=== PATIENT | male | born 1975 | race Asian ===

== ENCOUNTER 2018-10-19 11:53 | Emergency (ER) | payer OTHER ==
[~2018-10-19] VITALS: Ht 175.3 cm; Wt 69.4 kg
[2018-10-19] MEDS ORDERED: ONDANSETRON HCL INJ 2MG/ML 2ML 2 MG/ML VIAL IV STA (12:06)
[2018-10-19] MEDS ORDERED: IOPAMIDOL 370 MG/ML 200 ML INFUS..BTL INJ ONE (12:14)
[2018-10-19] MEDS ORDERED: DIATRIZOATE MEGL/DIATRIZOA SOD 30 ML BTL PO ONE (12:14)
[2018-10-19] MEDS ORDERED: SODIUM CHLORIDE 0.9% 50ML 50 ML ONE (12:15)
[2018-10-19] MEDS ORDERED: SODIUM CHLORIDE 0.9% 1000ML 1,000 ML IV SCH (12:15)
[2018-10-19] MEDS ORDERED: MORPHINE SULFATE INJ 4 MG/ML INJ 1ML IV PRN (12:15)
[2018-10-19] MEDS ORDERED: SODIUM CHLORIDE 0.9% 1000ML 1,000 ML ONE (12:30)
--- NOTE | 2018-10-19 14:13 | Diagnostic Imaging Report ---
EXAM: CT Abdomen and Pelvis WITH intravenous contrast INDICATION: Abdominal pain COMPARISON: None. TECHNIQUE: Abdomen and pelvis were scanned utilizing a multidetector helical scanner from the lung base to the pubic symphysis after administration of IV contrast. Coronal and sagittal reformations were obtained. Routine protocol was performed. Scan was performed when during portal venous phase. IV CONTRAST: 100mL of Isovue 370 ORAL CONTRAST: Gastrografin COMPLICATIONS: None RADIATION DOSE: Total DLP: 495.8 mGy*cm Dose modulation, iterative reconstruction, and/or weight based adjustment of the mA/kV was utilized to reduce the radiation dose to as low as reasonably achievable. FINDINGS: LOWER THORAX: 5 mm right middle lobe pulmonary nodule. No lung base consolidation. HEPATOBILIARY: Hepatic steatosis. Subcentimeter segment 6 hypodensity is too small to adequately characterize. No other focal liver lesions. Normal gallbladder. SPLEEN: No splenomegaly. PANCREAS: No focal masses or ductal dilatation. ADRENALS: No adrenal nodules. KIDNEYS/URETERS: No hydronephrosis or renal calculi. Right upper pole 1.4 cm renal cyst. PELVIC ORGANS/BLADDER: Unremarkable. PERITONEUM / RETROPERITONEUM: Small amount of dependent free fluid in the pelvis. LYMPH NODES: No lymphadenopathy. VESSELS: Unremarkable. GI TRACT: There are multiple loops of mildly distended small bowel in the right lower quadrant measuring up to 3.2 cm with associated prominent wall thickening. No definite evidence of obstruction. Normal appendix. BONES AND SOFT TISSUES: Unremarkable. IMPRESSION: Multiple mildly distended loops of small bowel in the right lower quadrant with associated prominent wall thickening. Findings are nonspecific and may represent an infectious or inflammatory process or less likely neoplastic processes such as lymphocytic infiltration. Hepatic steatosis. 5 mm right middle lobe pulmonary nodule. If the patient is low risk, no further follow-up is necessary. If the patient is high risk, chest CT at 12 months is optional. Signed by: Talon Rodriguez MD on 10/19/2018 2:09 PM
[2018-10-19 14:21] VITALS: BP 163/99
[2018-10-19] MEDS ORDERED: CLONIDINE HCL 0.1 MG TAB ONE (14:29)
[2018-10-19] MEDS ORDERED: CLONIDINE HCL 0.1 MG TAB PO ONE (14:30)
== END 2018-10-19 14:31 | disposition home or self-care (01) ==
LOC: FSED 11:53
DX: R10.13 Epigastric pain (principal); R10.33 Periumbilical pain; R10.31 Right lower quadrant pain; R11.2 Nausea with vomiting, unspecified; R19.7 Diarrhea, unspecified
CPT/HCPCS: 74177; 80053; 80076; 81003; 85025; 99284; J2270; J2405; J7030; Q9967